=== PATIENT | female | born 1965 | race Caucasian/White ===

== ENCOUNTER → 2016-05-05 | Outpatient (CLI) | payer OTHER ==
[~2016-05-05] MED LIST: ALL180 PO; ATOR-22 PO; CITA10TA8 PO; FEXO1TAB46 PO; LISI20TA55 PO; MULT-513 PO
[2016-05-05 13:54] LABS: ALT/SGPT 24 U/L (12-78); BLOOD UREA NITROGEN 11 mg/dl (7-18); BUN/CREATININE RATIO 13.8 (10-20); CALCIUM 9.1 mg/dl (8.5-10.1); CARBON DIOXIDE 27 mmol/L (21-32); CHLORIDE 107 mmol/L (98-107); CREATININE 0.82 mg/dl (0.60-1.20); GLUCOSE 91 mg/dl (70-99); POTASSIUM 3.8 mmol/L (3.5-5.1); SODIUM 142 mmol/L (136-145)
[2016-05-05 13:57] LABS: CHOLESTEROL 222 mg/dl (0-200); CHOLESTEROL/HDL RATIO 4.4; HDL CHOLESTEROL 51 mg/dl; LDL CHOLESTEROL CALCULATED 152 mg/dl; TRIGLYCERIDES 95 mg/dl (0-150); VERY LOW DENSITY LIPOPROT CALC 19 mg/dl
== END | disposition home or self-care (01) ==
LOC: C.LABPBG 09:40
PROVIDERS: ATTEND Family Medicine
DX: E78.5 Hyperlipidemia, unspecified (principal); I10 Essential (primary) hypertension

== ENCOUNTER 2016-08-05 18:36 | Emergency (ER) | payer BC, OTHER ==
[~2016-08-05] VITALS: Ht 165.1 cm; Wt 90.9 kg
[~2016-08-05 18:36] MED LIST changes: -FEXO1TAB46 PO
[2016-08-05 18:41] VITALS: TEMP 36.7; Ht 165.1 cm; Wt 90.9 kg
[2016-08-05 19:08] LABS: BASO % 0.1 %; BASO ABS # 0.01 K/uL (0-0.2); COMPLETE YES; EOS % 5.5 %; HEMATOCRIT 41.8 % (37-47); IG% 0.1 %; LYMPH % 40.2 %; LYMPH ABS # 2.99 K/uL (1.2-3.4); MEAN CORPUSCULAR HEMOGLOBIN 34.6 pg (25-34); MEAN CORPUSCULAR HGB CONC 35.6 g/dl (32-36); MEAN PLATELET VOLUME 8.9 fL (7.4-10.4); MONO % 6.9 %; NEUT % 47.2 %; PLATELET COUNT 222 K/uL (130-400); RED BLOOD COUNT 4.31 M/uL (4.2-5.4); WHITE BLOOD COUNT 7.44 K/uL (4.8-10.8)
[2016-08-05] MEDS ORDERED: FEXO1TAB46 PO (19:17)
[2016-08-05 19:18] LABS: INR 0.9 (0.9-1.1); PROTHROMBIN TIME (PATIENT) 9.5 SECONDS (9.0-12.0)
[2016-08-05 19:35] LABS: BUN/CREATININE RATIO 11.9 (10-20); CALCIUM 9.4 mg/dl (8.5-10.1); CREATININE 0.96 mg/dl (0.60-1.20); POTASSIUM 3.7 mmol/L (3.5-5.1)
--- NOTE | 2016-08-05 19:56 | DIAGNOSTIC IMAGING REPORT ---
ULTRASOUND LEFT LOWER EXTREMITY VENOUS CLINICAL HISTORY: Left leg pain and swelling. COMPARISON STUDY: No priors. TECHNIQUE: Real-time, grayscale, and color Doppler sonography of the deep veins of the left lower extremity was performed from the inguinal crease to the calf. Compression and augmentation were utilized. FINDINGS: There is no sonographic evidence of deep venous thrombosis identified in the left lower extremity. The common femoral, superficial femoral, and popliteal veins are patent and normally compressible. The greater saphenous vein and the profunda femoris vein at the junction with the common femoral vein are clear. The visualized calf veins are patent. IMPRESSION: There is no sonographic evidence of deep venous thrombosis identified in the left lower extremity. Electronically signed by: Christian French M.D. 08/05/2016 7:55 PM Dictated Date/Time: 08/05/2016 7:54 PM
[2016-08-05 20:32] VITALS: BP 204/110; PULSE 68; O2SAT 98
--- NOTE | 2016-08-07 12:26 | EMERGENCY ROOM VISIT NOTE ---
History Report prepared by Caprice: Allie Mccarthy Under the Supervision of: Dr. Kevin Guillen M.D. First contact with patient: 18:54 Chief Complaint: SWELLING TO EXTREMITY Stated Complaint: LEFT LEG SWOLLEN AND CRAMPY History of Present Illness The patient is a 51 year old female who presents to the Emergency Room with complaints of persistent left leg swelling starting earlier today. She had a mole removed from her foot 1 week ago and there are stitches in place. Her legs have been aching for the past couple of days. She started having swelling today. She called her PCP who told her to present to the ED. In 2013, she had a DVT in the same leg. She was on Lovenox injections and warfarin for 6 months. 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 The symptoms are similar to her previous DVT. She reports calf pain. She denies any chest pain, SOB, numbness, or weakness. She has no other complaints. She denies any trauma or injury. Source of History: patient, family Onset: earlier today Position: leg (left) Quality: other (swelling) Timing: other (persistent) Associated Symptoms: No SOB, No chest pain, No numbness, No weakness Note: Pt reports calf pain. Review of Systems See HPI for pertinent positives & negatives. A total of 10 systems reviewed and were otherwise negative. Past Medical & Surgical Medical Problems: (1) Malignant neoplasm of vagina Old medical records were reviewed. Nurse's notes were reviewed and I agree with. She did have a DVT in the past. Not currently on any anticoagulation Family History Diabetes mellitus FHx: cancer Hypertension Social History Smoking Status: Current Every Day Smoker Marital Status: Housing Status: lives with family Occupation Status: employed Current/Historical Medications Scheduled Atorvastatin (Lipitor), 20 MG PO DAILY Citalopram Hydrobromide (Celexa), 10 MG PO HS Lisinopril/Hctz (Prinzide 20-25MG), 1 TAB PO DAILY Scheduled PRN Fexofenadine Hcl (Jeanine), 180 MG PO DAILY PRN for Allergy Symptoms Allergies Coded Allergies: Penicillins (Verified Allergy, Intermediate, RASH FROM HEAD TO TOE., ) Physical Exam Vital Signs Date Time Temp Pulse Resp B/P Pulse Ox O2 Delivery O2 Flow Rate FiO2 08/05/16 20:32 68 18 204/110 98 Room Air 08/05/16 18:41 36.7 78 18 161/90 98 Room Air Physical Exam General: Non ill-appearing middle aged female in no acute distress. Well developed well nourished, breathing comfortably on room air. Normal speech HEENT: Normal cephalic atraumatic. Pupils are equal round and reactive to light. Extraocular movements are intact. Oropharynx is pink with moist mucous membranes. No swelling of the mouth lips or tongue. Neck: Supple with a midline trachea. No meningeal signs or stiffness, no JVD or bruits. No Stridor. Chest: Clear to auscultation bilaterally. No wheezes or rhonchi. No increased work of breathing. Heart: regular rate and rhythm. Abdomen: Soft nontender, nondistended without rebound guarding or rigidity. Extremities: Well healing post op incision to the left foot, no redness, warmth , or drainage. Mild calf tenderness. Spine/Back. Non tender to palpation. No CVA tenderness Skin: Good turgor without rashes. Neurologic exam: Cranial nerves two through 12 are intact. Motor and sensation are intact and symmetrical throughout. Medical Decision & Procedures ER Provider Diagnostic Interpretation: Radiology results as stated below per my review and radiologist interpretation: ULTRASOUND LEFT LOWER EXTREMITY VENOUS CLINICAL HISTORY: Left leg pain and swelling. COMPARISON STUDY: No priors. TECHNIQUE: Real-time, grayscale, and color Doppler sonography of the deep veins of the left lower extremity was performed from the inguinal crease to the calf. Compression and augmentation were utilized. FINDINGS: There is no sonographic evidence of deep venous thrombosis identified in the left lower extremity. The common femoral, superficial femoral, and popliteal veins are patent and normally compressible. The greater saphenous vein and the profunda femoris vein at the junction with the common femoral vein are clear. The visualized calf veins are patent. IMPRESSION: There is no sonographic evidence of deep venous thrombosis identified in the left lower extremity. Electronically signed by: Christian French M.D. 08/05/2016 7:55 PM Dictated Date/Time: 08/05/2016 7:54 PM Laboratory Results 08/05/16 19:00 Red Blood Count 4.31, Mean Corpuscular Volume 97.0, Mean Corpuscular Hemoglobin 34.6, Mean Corpuscular Hemoglobin Concent 35.6, Mean Platelet Volume 8.9, Neutrophils (%) (Auto) 47.2, Lymphocytes (%) (Auto) 40.2, Monocytes (%) (Auto) 6.9, Eosinophils (%) (Auto) 5.5, Basophils (%) (Auto) 0.1, Neutrophils # (Auto) 3.51, Lymphocytes # (Auto) 2.99, Monocytes # (Auto) 0.51, Eosinophils # (Auto) 0.41, Basophils # (Auto) 0.01 08/05/16 19:00 Test 08/05/16 19:00 White Blood Count 7.44 K/uL (4.8-10.8) Red Blood Count 4.31 M/uL (4.2-5.4) Hemoglobin 14.9 g/dL (12.0-16.0) Hematocrit 41.8 % (37-47) Mean Corpuscular Volume 97.0 fL (80-100) Mean Corpuscular Hemoglobin 34.6 pg (25-34) Mean Corpuscular Hemoglobin Concent 35.6 g/dl (32-36) Platelet Count 222 K/uL (130-400) Mean Platelet Volume 8.9 fL (7.4-10.4) Neutrophils (%) (Auto) 47.2 % Lymphocytes (%) (Auto) 40.2 % Monocytes (%) (Auto) 6.9 % Eosinophils (%) (Auto) 5.5 % Basophils (%) (Auto) 0.1 % Neutrophils # (Auto) 3.51 K/uL (1.4-6.5) Lymphocytes # (Auto) 2.99 K/uL (1.2-3.4) Monocytes # (Auto) 0.51 K/uL (0.11-0.59) Eosinophils # (Auto) 0.41 K/uL (0-0.5) Basophils # (Auto) 0.01 K/uL (0-0.2) RDW Standard Deviation 45.9 fL (36.4-46.3) RDW Coefficient of Variation 12.9 % (11.5-14.5) Immature Granulocyte % (Auto) 0.1 % Immature Granulocyte # (Auto) 0.01 K/uL (0.00-0.02) Prothrombin Time 9.5 SECONDS (9.0-12.0) Prothromb Time International Ratio 0.9 (0.9-1.1) Activated Partial Thromboplast Time 25.4 SECONDS (21.0-31.0) Partial Thromboplastin Ratio 1.0 Anion Gap 5.0 mmol/L (3-11) Est Creatinine Clear Calc Drug Dose 79.0 ml/min Estimated GFR () 80.5 Estimated GFR (Non- 69.4 BUN/Creatinine Ratio 11.9 (10-20) Calcium Level 9.4 mg/dl (8.5-10.1) Laboratory studies as stated above per my review. ED Course 1856: Past medical records reviewed. The patient was evaluated in room B2, and a complete history and physical examination were performed. 2039: Upon reevaluation, the patient is resting comfortably. I discussed the results and treatment plan with her. She verbalized agreement of the treatment plan. The patient was discharged home. Medical Decision Differential diagnosis: DVT, infection, electrolyte or metabolic abnormality, musculoskeletal. Medication reconciliation: I have personally reviewed her medication list on the chart This patient comes in with left leg vague pain. She had surgery on the foot it looks like it's healing well. There is no evidence suggest infection or surgical complication. Blood work was obtained is unremarkable. She has nothing to suggest electrolyte or metabolic abnormalities. I did do an ultrasound and she has no evidence of DVT. The patient was reassured. She is feeling well and will be discharged home. I encouraged to follow up with her regular doctor for recheck and return if: Increasing pain, redness or warmth, fever or chills, any new problems or concerns. She was happy with plan and discharged to home. Impression Primary Impression: Left leg pain Scribe Attestation The scribe's documentation has been prepared under my direction and personally reviewed by me in its entirety. I confirm that the note above accurately reflects all work, treatment, procedures, and medical decision making performed by me. Departure Information Dispostion Home / Self-Care Referrals Kelly Tian MD (PCP) Forms HOME CARE DOCUMENTATION FORM, IMPORTANT VISIT INFORMATION, WORK / SCHOOL INSTRUCTIONS Patient Instructions My [facility] Additional Instructions Rest. Return if: Increasing pain, worsening symptoms, fever chills, any new problems or concerns. Follow-up with your doctor in the next couple days for recheck if not better or symptoms worsen
[2017-03-09] MEDS ORDERED: LSN/2025 PO (13:03)
[2017-03-09] MEDS ORDERED: ATOR-22 PO (13:03)
[2017-03-09] MEDS ORDERED: LORA-741 PO (13:03)
[2017-03-09] MEDS ORDERED: CITA20TA9 PO (13:03)
[2017-03-09] MEDS ORDERED: FEXO1TAB46 PO (13:03)
== END 2016-08-05 21:00 | disposition home or self-care (01) ==
LOC: C.EDB 18:37
DX: M79.605 Pain in left leg (principal); Z83.3 Family history of diabetes mellitus; Z82.49 Family history of ischemic heart disease and other diseases of the circulatory system; F17.200 Nicotine dependence, unspecified, uncomplicated

== ENCOUNTER → 2017-02-09 | Outpatient (CLI) | payer BC, OTHER ==
[~2017-02-09] MED LIST changes: -ALL180 PO; +FEXO1TAB46 PO; -MULT-513 PO
[2017-02-09 14:17] VITALS: BP 166/88; PULSE 64; TEMP 36.5; O2SAT 98
--- NOTE | 2017-02-09 15:37 | Radiation Oncology Follow-Up ---
Radiation Oncology Follow-Up Date of Visit Feb 09, 2017. Reason For Visit Annual follow-up Radiation Completion Date Pelvic IMRT and HDR x 3 03/01/13 Diagnosis (1) Malignant neoplasm of vagina Status: Resolved Onset Date: 11/15/2012 Histology Subtype: squamous cell carcinoma Stage: lll Permanent Comment: Palpable left groin mass Status post excision of lymph node confirming metastatic squamous cell carcinoma high-grade Finding of distal vaginal lesion T2 N1M0 stage III Status post combined radiation and chemotherapy radiation completed 03/01/2013 received 5600 cGy with pelvic IMRT followed by 3 high-dose treatments of 500 cGy each, total radiation dose 7100 cGy Last Edited By: Keli Caban on Oct 30, 2014 16:46 History of Present Illness Ms. Gonzalez is a 50-year-old female who presented with palpable mass in the left groin. This was nontender, but her examination confirmed an ill-defined mass in the left inguinal area. An ultrasound was performed. This confirmed a 3.0 x 2.3 x 2.9 cm minimally lobulated hypoechogenic complex solid appearing mass felt to be consistent with a pathologically enlarged and possibly infected lymph node. In addition, a small oval hypoechoic solid nodule close to the previously mentioned node was noted measuring 1.6 x 1.0 x 0.9 cm also consistent with lymph node. The patient was seen by Dr. Yomi Izaguirre. His examination confirmed a hard fixed to 3 cm mass in the left groin. He discussed an excisional biopsy. On November 15 an excisional biopsy was performed of a left inguinal groin node. Node measured 3.0 x 2.8 x 2.6 cm with a second smaller node measuring 1.2 cm. Histologically these nodes contained metastatic squamous cell carcinoma high grade. The tumor was focally keratinizing. P-16 was strongly positive consistent with a marker for HPV. Case [id number]. The patient was subsequently seen by Dr. Kae Marie and noted on pelvic examination a mobile nodule at the vaginal introitus. This measured 2 x 3 cm and was a firm and slightly deviated to the left. The cervix and uterus were surgically absent. The patient was subsequently seen at [place] for evaluation of further surgical treatment options. Their exam showed a 2 x 3 cm firm midline mass in the posterior vagina with vaginal primary and metastatic lymph node in the left groin. The patient was seen by Dr. Collette Galvan who reviewed with her the treatment options of primary surgical treatment versus chemoradiation. A biopsy of the vaginal mass was performed. This confirmed a squamous cell carcinoma intermediate grade. The patient subsequently underwent an outpatient staging PET CT scan and was seen by Dr. Asa Vazquez for evaluation of systemic therapy. PET/CT scan was performed on December 07, 2012. This showed focal activity within the lower vagina with a maximum SUV of 12.95 consistent with a primary carcinoma. The upper vagina and pelvic structures are uninvolved. An ill-defined opacity is noted in the left groin possibly postsurgical. She completed combined radiation chemotherapy number 2012. Radiation was given with IMRT. She also received 3 high-dose treatments of 500 cGy each. Her total dose of radiation was 7100 cGy. Interim History She's been doing well over this past year. She denies any vaginal discharge or irritation. She's had noted change in urination. She did have an episode of rectal bleeding this morning. She stated she felt like she needed to have a bowel movement. She passed mucus and what appeared to be blood. She denied any abdominal pain or cramping prior to the bowel movement. She is concerned because she has a family history of colon cancer. Her grandmother had colon cancer in her 60s. She had surgery on a small amount of chemotherapy. She did not tolerated this well. She did live into her 70s. She was seen in gynecologic oncology this past year. There was no signs of recurrence. There was also a recheck PET/CT. There was some uptake at the vaginal cuff. This was felt to possibly be spillover activity from the urinary bladder. Direct visualization was recommended. This was performed 11/05/2016 and there was no recurrent seen. She no longer needs to use the vaginal dilator. Allergies Coded Allergies: Penicillins (Verified Allergy, Intermediate, RASH FROM HEAD TO TOE., ) Home Medications Scheduled Atorvastatin (Lipitor), 20 MG PO DAILY Citalopram Hydrobromide (Celexa), 10 MG PO HS Lisinopril/Hctz (Prinzide 20-25MG), 1 TAB PO DAILY Scheduled PRN Fexofenadine Hcl (Jeanine), 180 MG PO DAILY PRN for Allergy Symptoms Review of Systems Gastrointestinal: GI Comments: One episode this AM of urge for BM and only passed red mucus; Oral: Symptoms: No Problems Respiratory: Symptoms: WNL Urinary: Symptoms: WNL Skin: Symptoms: No Problems Physical Exam Vital Signs Date Time Temp Pulse Resp B/P (MAP) Pulse Ox O2 Delivery O2 Flow Rate FiO2 02/09/17 14:17 36.5 64 20 166/88 98 Fatigue: None General Appearance: no apparent distress Eyes: normal inspection, EOMI ENT: normal ENT inspection, hearing grossly normal Respiratory/Chest: lungs clear, no respiratory distress, no accessory muscle use Cardiovascular: regular rate, rhythm, no gallop, no murmur Abdomen: non tender, soft, no organomegaly Genitourinary - Female: Normal external genitalia. No vaginal discharge or bleeding. No visible or palpable lesions of the vagina. Negative bimanual examination. Anal / Rectum: Normal sphincter tone. No rectal masses no rectal bleeding. Extremities: no pedal edema Neurologic/Psychiatric: no motor/sensory deficits, alert, normal mood/affect Lymphatic: no adenopathy (no adenopathy of the groin) Assessment & Plan Plan: Continue regular follow-up with gynecologic oncology. She'll be seen there in May. Due to the episode of rectal bleeding she is referred to gastroenterology. She'll be seen by Lois Dumont physician assistant plant control operator who works with Dr. Jack on 02/17/2017. We asked her to return to our office in 1 year. She may call if she has any questions or concerns in the interim. Total Time In Follow-Up I spent 20 minutes speaking to the patient and performing examination. I spent 15 minutes reviewing information in completing this note. Copy To Lois Dumont PA; Sophia Galvan D.O.; Asa Vazquez M.D.; Kelly Tian MD
== END | disposition home or self-care (01) ==
LOC: C.ONC 14:03
PROVIDERS: ATTEND Physician Assistant Medical
DX: Z08 Encounter for follow-up examination after completed treatment for malignant neoplasm (principal); Z92.3 Personal history of irradiation; Z85.89 Personal history of malignant neoplasm of other organs and systems

== ENCOUNTER → 2017-03-16 | Day surgery (SDC) | payer BC ==
[2017-03-09 13:03] VITALS: Ht 165.1 cm; Wt 94.5 kg
[~2017-03-16] VITALS: Ht 165.1 cm; Wt 94.5 kg
[~2017-03-16] MED LIST changes: -CITA10TA8 PO; +CITA20TA9 PO; +LIDOCAINE HCL 2% 2 ML VIAL (20MG/ML) ONE; -LISI20TA55 PO; +LORA-741 PO; +LSN/2025 PO; +PROPOFOL IV EMULSION 10 MG/ML 20 ML VIAL IV ONE
--- NOTE | 2017-03-16 10:00 | Endo History and Physical ---
History & Physical Date of Service: Mar 16, 2017. Chief Complaint: Rectal bleeding Referring Physician: Dr. Kelly Tian History of Present Illness 51 yo CF who presents for colonoscopy secondary to rectal bleeding. Past Surgical History Hx Cardiac Surgery: No Hx Internal Defibrillator: No Hx Pacemaker: No Hx Abdominal Surgery: Yes (HYSTERECTOMY, CHRISTA) Hx of Implantable Prosthesis: No Hx Post-Op Nausea and Vomiting: No Hx Cancer Surgery: No Hx Thoracic Surgery: No Hx Orthopedic: No Hx Urinary Tract Surgery: No Family History Colon CA, Esophogeal CA Social History Smoking Status: Current Every Day Smoker Hx Substance Use: No Hx Alcohol Use: Yes (RARELY) Allergies Coded Allergies: Penicillins (Verified Allergy, Intermediate, RASH FROM HEAD TO TOE., ) Current Medications Reported Home Medications Medications Dose Route/Sig Max Daily Dose Days Date Category Ativan (Lorazepam) 0.5 Mg Tab 0.5 Mg PO Q6H PRN 03/09/17 Reported Jeanine (Fexofenadine Hcl) 180 Mg Tab 180 Mg PO DAILY PRN 03/09/17 Reported Celexa (Citalopram Hydrobromide) 20 Mg Tab 20 Mg PO HS 03/09/17 Reported Lipitor (Atorvastatin Calcium) 20 Mg Tab 20 Mg PO HS 03/09/17 Reported Lisinopril/Hctz 20/25 Mg (HCTZ/Lisinopril) 1 Ea Tab 1 Tab PO QAM 03/09/17 Reported Vital Signs Weight (Kilograms): 94.55 Height (Feet): 5 Height (Inches): 5 Date Time Temp Pulse Resp B/P (MAP) Pulse Ox O2 Delivery O2 Flow Rate FiO2 03/16/17 09:29 36.8 79 18 134/91 (105) 95 Room Air Physical Exam General Appearance: WD/WN, no apparent distress Respiratory/Chest: Auscultation: breath sounds normal Cardiovascular: Heart Auscultation: RRR Abdomen: Bowel Sounds: normal Inspection & Palpation: soft, non-distended, no tenderness, guarding & rebound Assessment and Plan Assessment: 51 yo CF who presents for colonoscopy secondary to rectal bleeding. Plan: Proceed with colonoscopy.
--- NOTE | 2017-03-16 10:20 | Discharge Instructions ---
Endoscopy Patient Instructions Date / Procedure(s) Performed Mar 16, 2017. Colonoscopy Allergy Information Coded Allergies: Penicillins (Verified Allergy, Intermediate, RASH FROM HEAD TO TOE., ) Discharge Date / Findings Mar 16, 2017. 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 OK to resume all medications today as prescribed Reported Home Medications Medications Dose Route/Sig Max Daily Dose Days Date Category Ativan (Lorazepam) 0.5 Mg Tab 0.5 Mg PO Q6H PRN 03/09/17 Reported Jeanine (Fexofenadine Hcl) 180 Mg Tab 180 Mg PO DAILY PRN 03/09/17 Reported Celexa (Citalopram Hydrobromide) 20 Mg Tab 20 Mg PO HS 03/09/17 Reported Lipitor (Atorvastatin Calcium) 20 Mg Tab 20 Mg PO HS 03/09/17 Reported Lisinopril/Hctz 20/25 Mg (HCTZ/Lisinopril) 1 Ea Tab 1 Tab PO QAM 03/09/17 Reported Provider Instructions Activity Restrictions - No exercising or heavy lifting for 24 hours. - Do not drink alcohol the day of the procedure. - Do not drive a car or operate machinery until the day after the procedure. - Do not make any important decisions or sign important papers in 24 hours after the procedure. Following Day: - Return to full activity which may include returning to work/school. Diet Start your diet with liquids and light foods (jello, soup, juice, toast). Then eat your usual diet if not nauseated. Treatment For Common After Affects For mild abdominal pain, bloating, or excessive gas: - Rest - Eat lightly - Lie on right side Follow-Up Information Follow-up with Dr. Kelly Tian as scheduled Anesthesia Information What You Should Know You have had a procedure that required some medicine to reduce anxiety and discomfort. This treatment is called moderate sedation. After receiving the treatment, you may be sleepy, but you will be able to breathe on your own. The effects of the treatment may last for several hours. Follow these instructions along with Activity/Diet recommendations noted above: * Do NOT do anything where dizziness or clumsiness would be dangerous. * Rest quietly at home today, then you can be up and about tomorrow. * Have a responsible person stay with you the rest of today. * You may have had an I.V. today. If so, you may take the dressing off later today. Recommendations Call your doctor if: * Trouble breathing * Continuous vomiting for more than 24 hours * Temperature above 101 degrees * Severe abdominal pain or bloating * Pain not relieved by pain medicine ordered * There is increased drainage or redness from any incision * A large amount of rectal bleeding greater than 2-3 tablespoons. (If you had a polyp/s removed or have hemorrhoids, a small amount of blood - from the rectum is to be expected.) * You have any unanswered questions or concerns. IN THE EVENT OF A SERIOUS EMERGENCY, GO TO THE NEAREST EMERGENCY ROOM Your discharge instructions were prepared by provider Ivan Jack. Patient Instructions Signature Page Anahy Gonzalez Patient (or Guardian) Signature/Date: I have read and understand the instructions given to me by my caregivers. Caregiver/RN/Doctor Signature/Date: The above-named patient and/or guardian has received patient instructions on this date. + Original Patient Signature Page (only) stays with chart. Please make copy for patient.
--- NOTE | 2017-03-16 11:27 | GI REPORT ---
Procedure Date: 03/16/2017 10:57 AM Procedure: Colonoscopy Indications: Rectal bleeding Medicines: Monitored Anesthesia Care Complications: No immediate complications. Estimated Blood Loss: Estimated blood loss: none. Procedure: Pre-Anesthesia Assessment: - Prior to the procedure, a History and Physical was performed, and patient medications and allergies were reviewed. The patient's tolerance of previous anesthesia was also reviewed. The risks and benefits of the procedure and the sedation options and risks were discussed with the patient. All questions were answered, and informed consent was obtained. Prior Anticoagulants: The patient has taken no previous anticoagulant or antiplatelet agents. ASA Grade Assessment: II - A patient with mild systemic disease. After reviewing the risks and benefits, the patient was deemed in satisfactory condition to undergo the procedure. After I obtained informed consent, the scope was passed under direct vision. Throughout the procedure, the patient's blood pressure, pulse, and oxygen saturations were monitored continuously. The scope was introduced through the anus and advanced to the terminal ileum. The colonoscopy was performed without difficulty. The patient tolerated the procedure well. The quality of the bowel preparation was good. The terminal ileum, the ileocecal valve and the appendiceal orifice were photographed. Findings: The perianal and digital rectal examinations were normal. Multiple small-mouthed diverticula were found in the sigmoid colon. Localized mild inflammation characterized by friability was found in the rectum. Impression: - Diverticulosis in the sigmoid colon. 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 - No specimens collected. Recommendation: - Resume previous diet. - Continue present medications. - Repeat colonoscopy in 10 years for surveillance. - Return to primary care physician as previously scheduled. Ivan Jack, 03/16/2017 11:27:09 AM This report has been signed electronically. Note Initiated On: 03/16/2017 10:57 AM I attest to the content of the Intraoperative Record and orders documented therein, exceptions below
--- NOTE | 2017-03-16 11:33 | Anesthesiology Progress Note ---
Anesthesia Post Op Note Date & Time Mar 16, 2017 at 11:33 Vital Signs Pain Intensity: 0 Vital Signs Past 12 Hours Date Time Temp Pulse Resp B/P (MAP) Pulse Ox O2 Delivery O2 Flow Rate FiO2 03/16/17 11:22 70 16 167/93 (117) 93 Room Air 03/16/17 09:29 36.8 79 18 134/91 (105) 95 Room Air Notes Mental Status: alert / awake / arousable, participated in evaluation Pt Amnestic to Procedure: Yes Nausea / Vomiting: adequately controlled Pain: adequately controlled Airway Patency, RR, SpO2: stable & adequate BP & HR: stable & adequate Hydration State: stable & adequate Anesthetic Complications: no major complications apparent
[2017-03-16 11:50] VITALS: BP 167/95; PULSE 65; O2SAT 97
== END | disposition home or self-care (01) ==
LOC: C.GI 09:07
PROVIDERS: ATTEND Internal Medicine
DX: K62.5 Hemorrhage of anus and rectum (principal); K57.30 Diverticulosis of large intestine without perforation or abscess without bleeding; K62.89 Other specified diseases of anus and rectum; Z86.718 Personal history of other venous thrombosis and embolism; Z88.0 Allergy status to penicillin; Z90.710 Acquired absence of both cervix and uterus; F17.200 Nicotine dependence, unspecified, uncomplicated; Z79.899 Other long term (current) drug therapy; Z90.49 Acquired absence of other specified parts of digestive tract; Z90.89 Acquired absence of other organs; Z98.818 Other dental procedure status; E66.9 Obesity, unspecified; Z68.38 Body mass index [BMI] 38.0-38.9, adult; Z80.0 Family history of malignant neoplasm of digestive organs

== ENCOUNTER 2019-12-21 19:42 | Observation (INO) ==
[2019-12-21] MEDS ORDERED: SODIUM CHLORIDE 0.9% 1000ML 1,000 ML IV ONE (20:00)
[2019-12-21] MEDS ORDERED: ONDANSETRON INJ 2 MG/ML 2 ML VIAL IV STA (20:00)
[2019-12-21] MEDS ORDERED: MoRPHine SULFATE 4 MG/ML 1 ML CARP\\VIAL IV STA (20:00)
--- NOTE | 2019-12-21 20:08 | Emergency Department Note ---
History of Present Illness General Chief Complaint: Diarrhea Stated Complaint: DIARRHEA, VOMITING Time Seen by Provider: 12/21/19 19:53 History of Present Illness Provider Complaint: abdominal pain Onset (ago): 2 day(s) Pain Consistency: constant Location: LLQ Radiation: none Migration to: no migration Maximum Pain Intensity: 4 Current Pain Intensity: 4 Quality: + sharp Relieved By: + nothing Exacerbated By: + nothing Context: no possible food poisoning, no sick contacts, no recent antibiotic use, no recent surgery/procedure and no recent injury Associated Symptoms: + nausea, + vomiting, + diarrhea and + chest pain; no dysuria, no hematemesis, no hematochezia, no melena, no hematuria, no headache, no neck pain, no back pain, no weakness and no breathing difficulty Related Data Patient Confirmed : No Home Medications Home Medications Medication Instructions Recorded Confirmed Type multivitamin 1 tab PO [id number] 02/15/18 12/21/19 History citalopram 20 mg tablet 20 mg PO DAILY #30 tab 11/24/19 12/21/19 Rx fexofenadine 180 mg tablet 180 mg PO DAILY #30 tab 11/24/19 12/21/19 Rx lisinopril 20 1 tab PO DAILY #30 tab 11/24/19 12/21/19 Rx mg-hydrochlorothiazide 25 mg tablet lorazepam 0.5 mg tablet 0.5 mg PO TID PRN #30 tab 11/24/19 12/21/19 Rx atorvastatin 40 mg tablet 40 mg PO DAILY #30 tab 11/30/19 12/21/19 Rx diphenoxylate-atropine 2.5 1 tab PO QID PRN #30 tab MDD 8 12/19/19 12/21/19 Rx mg-0.025 mg tablet TABS/24H ondansetron 4 mg disintegrating 4 mg PO Q6H PRN #10 tab 12/19/19 12/21/19 Rx tablet Allergies Allergy/AdvReac Type Severity Reaction Status Date / Time Penicillins Allergy Intermediate RASH FROM Verified 12/19/19 16:33 HEAD TO TOE. 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 Finding of distal vaginal lesion T2 N1M0 stage III Status post combined radiation and chemotherapy radiation completed 03/01/2013 received 5600 cGy with pelvic IMRT followed by 3 high-dose treatments of 500 cGy each, total radiation dose 7100 cGy" No pertinent family history Seasonal allergies Surgical History H/O: hysterectomy S/P laparoscopic cholecystectomy Social History Smoking Status: Current every day smoker Cigarettes Per Day: 20; Tobacco Cessation Education Requested by Patient: No Hx Alcohol Use: No Preferred Language: Moroccan Communication Ability: Effective Survey Research Analyst Required: No Beliefs That Will Affect Care: None Current Living Situation: Spouse Feels Safe at Home: Yes Review of Systems A total of 10 systems reviewed and were otherwise negative Physical Exam Vital Signs: Vital Signs - 24 hr 12/21/19 19:44 12/21/19 20:01 12/21/19 20:21 Temperature 36.6 C Temperature Source Oral Pulse Rate 66 58 L Pulse Rate [Apical ] Pulse Rate from Sp O2 Sensor 59 L Respiratory Rate 18 22 Respiratory Effort / Characteristics Non-Labored Sponta neous Respiratory Depth Normal Respiratory Patter n Regular Blood Pressure 148/85 H 132/74 Blood Pressure [Ri ght Arm] Blood Pressure Devorah n 106 79 Blood Pressure Devorah n [Right Arm] Blood Pressure Pos ition Sitting Pulse Oximetry 97 95 Oxygen Delivery Me thod Room Air Room Air Room Air Sepsis Recent Feve r Within 48 Hours No Sepsis New/Unexpla ined Change in Men bubba Status No Sepsis Action Take n by Nursing No Action Required 12/21/19 20:30 12/21/19 21:11 12/21/19 21:13 Temperature Temperature Source Pulse Rate 59 L 58 L 57 L Pulse Rate [Apical ] Pulse Rate from Sp O2 Sensor 59 L 58 L 58 L Respiratory Rate 25 H 16 19 Respiratory Effort / Characteristics Respiratory Depth Respiratory Patter n Blood Pressure 146/80 H 148/80 H Blood Pressure [Ri ght Arm] Blood Pressure Devorah n 92 95 Blood Pressure Devorah n [Right Arm] Blood Pressure Pos ition Pulse Oximetry 96 97 97 Oxygen Delivery Me thod Room Air Room Air Sepsis Recent Feve r Within 48 Hours Sepsis New/Unexpla ined Change in Men bubba Status Sepsis Action Take n by Nursing 12/21/19 21:30 12/21/19 22:01 12/21/19 22:30 Temperature Temperature Source Pulse Rate 58 L 55 L 57 L Pulse Rate [Apical ] Pulse Rate from Sp O2 Sensor 57 L 55 L 55 L Respiratory Rate 27 H 17 15 Respiratory Effort / Characteristics Respiratory Depth Respiratory Patter n Blood Pressure 139/78 128/72 136/84 Blood Pressure [Ri ght Arm] Blood Pressure Devorah n 104 82 102 Blood Pressure Devorah n [Right Arm] Blood Pressure Pos ition Pulse Oximetry 96 96 97 Oxygen Delivery Me thod Room Air Room Air Room Air Sepsis Recent Feve r Within 48 Hours Sepsis New/Unexpla ined Change in Men bubba Status Sepsis Action Take n by Nursing 12/21/19 22:56 Temperature Temperature Source Pulse Rate Pulse Rate [Apical ] 58 L Pulse Rate from Sp O2 Sensor Respiratory Rate 18 Respiratory Effort / Characteristics Respiratory Depth Respiratory Patter n Blood Pressure Blood Pressure [Ri ght Arm] 127/71 Blood Pressure Devorah n Blood Pressure Devorah n [Right Arm] 89 Blood Pressure Pos ition Pulse Oximetry 98 Oxygen Delivery Me thod Room Air Sepsis Recent Feve r Within 48 Hours Sepsis New/Unexpla ined Change in Men bubba Status Sepsis Action Take n by Nursing Physical Exam: Physical Exam GENERAL: She is oriented to person, place, and time. She appears well-developed and well-nourished. She does not appear distressed. HENT: Exam performed. -Head: Normocephalic and atraumatic. -Right Ear: External ear normal. No mastoid tenderness. -Left Ear: External ear normal. No mastoid tenderness. -Mouth/Throat: The oropharynx is clear and moist. No trismus in the jaw. No dental abscesses or uvula swelling. No oropharyngeal exudate or tonsillar abscesses. EYES: Conjunctivae and EOM are normal. Pupils are equal, round, and reactive to light. Right eye exhibits no discharge. Left eye exhibits no discharge. No scleral icterus. NECK: Normal range of motion. Neck supple. No JVD present. No spinous process tenderness present. No carotid bruit present. No rigidity. No tracheal deviation and normal range of motion present. No Brudzinski's sign and no Kernig's sign no artur. CV: Normal rate, regular rhythm, normal heart sounds and intact distal pulses. There is no peripheral edema. Palpable radial pulses bue. PULM/CHEST: Effort normal and breath sounds normal. No respiratory distress. No stridor. She has no wheezes. She has no rales. -Chest Wall: She exhibits no tenderness. ABD: The abdomen is soft. Bowel sounds are normal. She has no distension. No mass is present. There is tenderness to palpation of the left lower quadrant and epigastric area. There is no rebound, no guarding, no Lopez's sign and no tenderness at McBurney's point. Rovsig negative MUSC/SKEL: Normal range of motion. There is no peripheral edema, tenderness or deformity. LYMPH: No cervical adenopathy. NEURO: She is alert and oriented to person, place, and time. She has normal strength. No cranial nerve deficit or sensory deficit. Coordination and gait normal. GCS eye subscore is 4. GCS verbal subscore is 5. GCS motor subscore is 6. Cerebellar tests wnl. SKIN: Skin is warm and dry. She is not diaphoretic. PSYCH: She has a normal mood and affect. Behavior is normal. Judgment and thought content normal. Course Course 1952: The patient was evaluated in room B11. A complete history and physical exam was performed. Cardiac monitoring: An order was placed for continuous cardiac monitoring. The monitor shows a rate of 60 with sinus rhythm 2215: Vital signs stable. Labs show leukopenia of 3.44. Potassium 2.8. Nasion within normal limits. Patient's bilirubin level direct is elevated 0.4. AST and ALT are elevated 273 and 397 respectively. Alkaline phosphatase elevated at 138. [facility]. Patient is in agreement with this plan. Potassium will begin to be replaced in the emergency department. Administered Medications Discontinued Medications Sodium Chloride (Nss 1000ml) 1,000 mls @ 999 mls/hr IV .Q1H1M ONE Stop: 12/21/19 21:00 Last Infusion: 12/21/19 21:15 Dose: 0 mls/hr Documented by: [id number] Admin: 12/21/19 20:15 Dose: 999 mls/hr Documented by: [id number] Potassium Chloride (K Bryan / Wtr) 10 meq in 100 mls @ 100 mls/hr IV Q1H AMIRA Stop: 12/22/19 00:14 Last Admin: 12/21/19 23:41 Dose: 100 mls/hr Documented by: [id number] Infusion: 12/21/19 23:38 Dose: 0 mls/hr Documented by: [id number] Admin: 12/21/19 22:37 Dose: 100 mls/hr Documented by: [id number] Ioversol (Ioversol 100ml) 94 ml IV ONCE ONE Stop: 12/21/19 20:46 Last Admin: 12/21/19 20:45 Dose: 94 ml Documented by: [id number] Morphine Sulfate (Morphine Sulfate 4 Mg/Ml 1 Ml Carp\\Vial) 4 mg IV NOW STA Stop: 12/21/19 20:01 Last Admin: 12/21/19 20:15 Dose: 4 mg Documented by: [id number] Ondansetron HCl (Ondansetron Inj 2 Mg/Ml 2 Ml Vial) 4 mg IV NOW STA Stop: 12/21/19 20:01 Last Admin: 12/21/19 20:15 Dose: 4 mg Documented by: [id number] Potassium Chloride (Potassium Chloride 10 Meq Tabcr) 40 meq PO NOW STA Stop: 12/21/19 22:03 Last Admin: 12/21/19 22:37 Dose: 40 meq Documented by: [id number] Medical Decision Making Laboratory Data Result diagrams: 12/21/19 20:11 12/21/19 20:11 Lab Results 12/21/19 12/21/19 12/21/19 Range/Units 20:11 20:11 20:11 WBC 3.44 L (4.8-10.8) K/uL RBC 4.50 (4.2-5.4) M/uL Hgb 14.3 (12.0-16.0) g/dL Hct 40.2 (37-47) % MCV 89.3 (80-100) fL MCH 31.8 (25-34) pg MCHC 35.6 (32-36) g/dL RDW Std Deviation 42.1 (36.4-46.3) fL RDW Coeff of Kendra 12.9 (11.5-14.5) % Plt Count 137 (130-400) K/uL MPV 10.0 (7.4-10.4) fL Immature Gran % (Auto) 0.0 % Neut % (Auto) 39.8 % Lymph % (Auto) 41.3 % [place] % (Auto) 15.4 % Eos % (Auto) 3.2 % Baso % (Auto) 0.3 % Neut # (Auto) 1.37 L (1.4-6.5) K/uL Lymph # (Auto) 1.42 (1.2-3.4) K/uL [place] # (Auto) 0.53 (0.11-0.59) K/uL Eos # (Auto) 0.11 (0-0.5) K/uL Baso # (Auto) 0.01 (0-0.2) K/uL Immature Gran # (Auto) 0.00 (0.00-0.02) K/uL Sodium 139 (136-145) mmol/L Potassium 2.8 L (3.5-5.1) mmol/L Chloride 107 (98-107) mmol/L Carbon Dioxide 27 (21-32) mmol/L Anion Gap 5.0 (3-11) BUN 9 (7-18) mg/dl Creatinine 0.80 (0.6-1.2) mg/dl Est Cr Clr Drug Dosing Not Reportable Est GFR ( Amer) 98.2 Est GFR (Non-Af Amer) 84.8 BUN/Creatinine Ratio 10.9 (10-20) Glucose 101 H (70-99) mg/dl Calcium 9.2 (8.5-10.1) mg/dl Magnesium 2.1 (1.8-2.4) mg/dl Total Bilirubin 0.9 (0.2-1) mg/dl Direct Bilirubin 0.4 H (0-0.2) mg/dl AST 273 H (15-37) U/L ALT 397 H (12-78) U/L Alkaline Phosphatase 138 H (45-117) U/L Troponin I < 0.015 (0-0.045) ng/ml Total Protein 6.7 (6.4-8.2) gm/dl Albumin 3.3 L (3.4-5.0) gm/dl Lipase 287 (73-393) U/L Urine Color Urine Appearance (Clear) Urine pH (4.5-7.5) Ur Specific [place] (1.000-1.030) Urine Protein (Negative) Urine Glucose (UA) (Negative) Urine Ketones (Negative) Urine Blood (Negative) Urine Nitrite (Negative) Urine Bilirubin (Negative) Urine Urobilinogen (Negative) Ur Leukocyte Esterase (Negative) Urine RBC (0-4) /hpf Urine WBC (0-5) /hpf Ur Epithelial Cells (0-5) /lpf Urine Bacteria (Negative) 12/21/19 Range/Units 21:10 WBC (4.8-10.8) K/uL RBC (4.2-5.4) M/uL Hgb (12.0-16.0) g/dL Hct (37-47) % MCV (80-100) fL MCH (25-34) pg MCHC (32-36) g/dL RDW Std Deviation (36.4-46.3) fL RDW Coeff of Kendra (11.5-14.5) % Plt Count (130-400) K/uL MPV (7.4-10.4) fL Immature Gran % (Auto) % Neut % (Auto) % Lymph % (Auto) % [place] % (Auto) % Eos % (Auto) % Baso % (Auto) % Neut # (Auto) (1.4-6.5) K/uL Lymph # (Auto) (1.2-3.4) K/uL [place] # (Auto) (0.11-0.59) K/uL Eos # (Auto) (0-0.5) K/uL Baso # (Auto) (0-0.2) K/uL Immature Gran # (Auto) (0.00-0.02) K/uL Sodium (136-145) mmol/L Potassium (3.5-5.1) mmol/L Chloride (98-107) mmol/L Carbon Dioxide (21-32) mmol/L Anion Gap (3-11) BUN (7-18) mg/dl Creatinine (0.6-1.2) mg/dl Est Cr Clr Drug Dosing Est GFR ( Amer) Est GFR (Non-Af Amer) BUN/Creatinine Ratio (10-20) Glucose (70-99) mg/dl Calcium (8.5-10.1) mg/dl Magnesium (1.8-2.4) mg/dl Total Bilirubin (0.2-1) mg/dl Direct Bilirubin (0-0.2) mg/dl AST (15-37) U/L ALT (12-78) U/L Alkaline Phosphatase (45-117) U/L Troponin I (0-0.045) ng/ml Total Protein (6.4-8.2) gm/dl Albumin (3.4-5.0) gm/dl Lipase (73-393) U/L Urine Color Yellow Urine Appearance Clear (Clear) Urine pH 6.0 (4.5-7.5) Ur Specific [place] <= 1.005 (1.000-1.030) Urine Protein Negative (Negative) Urine Glucose (UA) Negative (Negative) Urine Ketones Negative (Negative) Urine Blood 1+ H (Negative) Urine Nitrite Negative (Negative) Urine Bilirubin Negative (Negative) Urine Urobilinogen Positive H (Negative) Ur Leukocyte Esterase Negative (Negative) Urine RBC 5-10 H (0-4) /hpf Urine WBC 0-5 (0-5) /hpf Ur Epithelial Cells >30 H (0-5) /lpf Urine Bacteria Negative (Negative) Imaging Data Radiologist's Impression: XR chest 1V portable CLINICAL HISTORY: epigastric pain COMPARISON STUDY: Chest radiograph January 14, 2007. FINDINGS: Lung volumes are normal. Lungs are clear. There is no pneumothorax or pleural effusion. Cardiac size is normal. Mediastinal contours are normal. There is no evidence for pulmonary edema. IMPRESSION: No acute cardiopulmonary findings. ACT 112: Negative or not required by law. Electronically signed by: Сергей Daniels M.D. 12/21/2019 9:08 PM Dictated: 12/21/192106 Transcribed: 12/21/192106 CT OF THE ABDOMEN AND PELVIS WITH CONTRAST CLINICAL HISTORY: Left lower quadrant and epigastric pain. COMPARISON STUDY: PET/CT July 01, 2016. TECHNIQUE: Following IV administration of 94 mL of Optiray-320, axial images of the abdomen and pelvis were obtained from the lung bases to the proximal femurs. Images were reviewed in the axial, sagittal, and coronal planes. IV contrast was administered without complication. Automated exposure control was utilized for the study. A dose lowering technique was utilized adhering to the principles of ALARA. CT DOSE: 675.92 mGy.cm FINDINGS: A few small subpleural nodules within the lower lungs are unchanged since PET/CT of July 01, 2016. These are benign. There is a right hepatic lobe cyst. Mild prominence of the biliary tree is likely related to cholecystectomy. The spleen, adrenal glands and pancreas are unremarkable. There is no peripancre atic infiltration. A 1.3 cm lesion within the upper pole of the right kidney is too small to characterize on this exam but favors a cyst. No hydronephrosis. No urinary calculi are identified. The caliber and wall thickness of small and large bowel are normal. There is no ascites or lymphadenopathy. The appendix is normal. There are no suspicious osseous lesions. IMPRESSION: 1. No acute process within the abdomen or pelvis. 2. Normal appendix. No bowel obstruction. No bowel wall thickening. 3. Mild prominence of the biliary tree. This is likely related to previous cholecystectomy however could be correlated with liver function tests. ACT 112: Negative or not required by law. Electronically signed by: Сергей Daniels M.D. 12/21/2019 9:07 PM Dictated: 12/21/192053 Transcribed: 12/21/192058 ECG Data Indication: nausea Rate (beats per minute): 62 Rhythm: normal sinus Findings: no ST depression and no ST elevation Additional Comments: IN QRS and QTc intervals are within normal limits. [facility] Narrative 1953: The patient was evaluated in room B11. A complete history and physical exam was performed. Cardiac monitoring: An order was placed for continuous cardiac monitoring. The monitor shows a rate of 60 with sinus rhythm 2215: Vital signs stable. Labs show leukopenia of 3.44. Potassium 2.8. Nasion within normal limits. Patient's bilirubin level direct is elevated 0.4. AST and ALT are elevated 273 and 397 respectively. Alkaline phosphatase elevated at 138. [facility]. Patient is in agreement with this plan. Potassium will begin to be replaced in the emergency department. Impression & Plan Acute hypokalemia, Transaminitis Discharge Plan Visit Data Chief Complaint: Diarrhea Stated Complaint: DIARRHEA, VOMITING ED Provider: Mansoor Cid Discharge Problem: Acute hypokalemia, Transaminitis Patient Disposition: Admitted As Inpatient Discharge Instructions Interventions: ED Discharge Assessment Last Done: 12/22/19 00:15
[2019-12-21 20:18] LABS: Basophils # (auto) 0.01 K/uL (0-0.2); Basophils % (auto) 0.3 %; Eosinophils # (auto) 0.11 K/uL (0-0.5); Eosinophils % (auto) 3.2 %; Hematocrit (blood only) 40.2 % (37-47); Hemoglobin 14.3 g/dL (12.0-16.0); Lymphocytes # (auto) 1.42 K/uL (1.2-3.4); Lymphocytes % (auto) 41.3 %; Mean Corpuscular Hemoglobin 31.8 pg (25-34); Mean Corpuscular Hgb Conc 35.6 g/dL (32-36); Mean Corpuscular Volume 89.3 fL (80-100); Monocytes # (auto) 0.53 K/uL (0.11-0.59); Monocytes % (auto) 15.4 %; Neutrophils # (auto) 1.37 K/uL (1.4-6.5); Neutrophils % (auto) 39.8 %; Platelet Count 137 K/uL (130-400); RDW Coefficient of Variation 12.9 % (11.5-14.5); RDW Standard Deviation 42.1 fL (36.4-46.3); White Blood Count 3.44 K/uL (4.8-10.8)
[2019-12-21 20:34] LABS: Alanine Aminotransferase 397 U/L (12-78); Albumin Level 3.3 gm/dl (3.4-5.0); Aspartate Aminotransferase 273 U/L (15-37); BUN Creatinine Ratio 10.9 (10-20); Bilirubin Direct 0.4 mg/dl (0-0.2); Blood Urea Nitrogen 9 mg/dl (7-18); Calcium 9.2 mg/dl (8.5-10.1); Carbon Dioxide 27 mmol/L (21-32); Chloride 107 mmol/L (98-107); Est GFR (African American) 98.2; Est GFR (Non-African American) 84.8; Glucose 101 mg/dl (70-99); Lipase 287 U/L (73-393); Potassium 2.8 mmol/L (3.5-5.1); Sodium 139 mmol/L (136-145)
[2019-12-21 20:39] LABS: Alkaline Phosphatase 138 U/L (45-117); Bilirubin,Total 0.9 mg/dl (0.2-1); Total Protein 6.7 gm/dl (6.4-8.2); Troponin I < 0.015 ng/ml (0-0.045)
[2019-12-21] MEDS ORDERED: IOVERSOL 100ml IV ONE (20:45)
--- NOTE | 2019-12-21 21:08 | CT Scan Report ---
CT OF THE ABDOMEN AND PELVIS WITH CONTRAST CLINICAL HISTORY: Left lower quadrant and epigastric pain. COMPARISON STUDY: PET/CT July 01, 2016. TECHNIQUE: Following IV administration of 94 mL of Optiray-320, axial images of the abdomen and pelvi s were obtained from the lung bases to the proximal femurs. Images were reviewed in the axial, sagitt al, and coronal planes. IV contrast was administered without complication. Automated exposure contro l was utilized for the study. A dose lowering technique was utilized adhering to the principles of A LASHA. CT DOSE: 675.92 mGy.cm FINDINGS: A few small subpleural nodules within the lower lungs are unchanged since PET/CT of June 042016. These are benign. There is a right hepatic lobe cyst. Mild prominence of the biliary tree is likely related to cholecystectomy. The spleen, adrenal glands and pancreas are unremarkable. There i s no peripancreatic infiltration. A 1.3 cm lesion within the upper pole of the right kidney is too sm all to characterize on this exam but favors a cyst. No hydronephrosis. No urinary calculi are identif ied. The caliber and wall thickness of small and large bowel are normal. There is no ascites or lymph adenopathy. The appendix is normal. There are no suspicious osseous lesions. IMPRESSION: 1. No acute process within the abdomen or pelvis. 2. Normal appendix. No bowel obstruction. No bowel wall thickening. 3. Mild prominence of the biliary tree. This is likely related to previous cholecystectomy however c ould be correlated with liver function tests. ACT 112: Negative or not required by law. Electronically signed by: Сергей Daniels M.D. 12/21/2019 9:07 PM
--- NOTE | 2019-12-21 21:09 | XRay Report ---
XR chest 1V portable CLINICAL HISTORY: epigastric pain COMPARISON STUDY: Chest radiograph January 14, 2007. FINDINGS: Lung volumes are normal. Lungs are clear. There is no pneumothorax or pleural effusion. Car diac size is normal. Mediastinal contours are normal. There is no evidence for pulmonary edema. IMPRESSION: No acute cardiopulmonary findings. ACT 112: Negative or not required by law. Electronically signed by: Сергей Daniels M.D. 12/21/2019 9:08 PM
[2019-12-21 21:20] LABS: Appearance Urine Clear (Clear); Bilirubin Urine Negative (Negative); Blood Urine 1+ (Negative); Color Urine Yellow; Glucose Urine UA Negative (Negative); Ketones Urine Negative (Negative); Leukocyte Esterase Urine Negative (Negative); Nitrite Urine Negative (Negative); Protein Urine Negative (Negative); Specific Gravity Urine <= 1.005 (1.000-1.030); Urobilinogen Urine Positive (Negative)
[2019-12-21 21:26] LABS: Epithelial Cell Urine >30 /lpf (0-5); WBC Urine 0-5 /hpf (0-5)
[2019-12-21 21:27] LABS: Bacteria Urine Negative (Negative)
[2019-12-21] MEDS ORDERED: POTASSIUM CHLORIDE 10 MEQ TABCR PO STA (22:02)
[2019-12-21] MEDS: POTASSIUM CHLORIDE / WTR 10 MEQ/100 ML PLCT IV SCH ×2 (22:37→23:41)
--- NOTE | 2019-12-21 22:56 | History & Physical Report ---
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 She is hemodynamically stable. 1. Nausea, vomiting, and diarrhea x 4 days -Clinically, this status-post cholecystectomy patient reports about 4 days of nausea, vomiting, and diarrhea that has not shown any improvement with new, mild diffuse itching throughout today. The exact etiology of these issues remains unclear. While they certainly could represent a viral or bacterial gastroenteritis (e.g., 2/2 food poisoning), the overall picture is complicated by transaminitis and an otherwise normal white count/afebrile state, further denying any constitutional symptoms over this timeframe. As such, there is question as to whether or not the nausea, vomiting, and diarrhea are related to one process, or represent two separate processes. -Lipase WNL -Currently controlled status post Zofran in the ED -EKG performed to the ED were not concerning for any acute ischemia. Troponins were WNL. -Stool cultures ordered -Zofran 4mg IV PRN for nausea / vomiting -- hold home Zofran -Hold home diphenoxylateatropine 2. Transaminitis (in the setting of nausea, vomiting, and diarrhea x 4 days) -Arrival laboratories were significant for transaminitis of AST 273 and ALT 397, alk phos 138, direct bilirubin of 0.4, and albumin slightly reduced to 3.3 --these laboratory values are not suggestive of a biliary obstructive process, but more likely, an intrahepatic process / reaction. She denies recent alcohol use or drug use. Does report restarting her atorvastatin 40mg about a month ago (that she was previously on for a number of years, but ran out during the pandemic), but otherwise, no new medications (low suspicion for DILI). -CT of the abdomen and pelvis did show mild prominence of the biliary tree, thought to be either related to structural changes from past cholecystectomy versus a new/current issue. While she does report very mild diffuse itching, her laboratories are not suggestive of an overt biliary obstruction like choledocholithiasis. She is not jaundiced. -GI consult placed in setting of transaminitis with nausea/vomiting/diarrhea x 4 days. -LFTs + PT/PTT ordered for tomorrow morning for further evaluation of synthetic function -If LFTs continue to demonstrate elevation tomorrow, can consider MRCP for further visualization of both the liver and biliary tree. -Hepatitis panel ordered -NPO in setting of vomiting 3. Hypokalemia -Admission K found to be 2.8 upon arrival in the ED --given that she reports significant vomiting and diarrhea over the last 4 days, was hypokalemia is likely secondary to GI losses. -s/p KCl 50mEq IV in the ED -Replete with KCl IV PRN -BMP tomorrow morning, recheck K Chronic Medical Problems Anxiety: Continue citalopram 20mg PO daily HLD: Continue atorvastatin 40mg PO daily HTN: Continue lisinopril-HCTZ 20-25mg PO daily -- BPs stable since arrival Seasonal allergies: Continue fexofenadine 180mg PO PRN Dispo: Med/surg PPX: SCDs F/E/N: NPO, hypokalemia as above Code: Full code (2) GABE (generalized anxiety disorder): (3) HTN, goal below 140/90: (4) Hyperlipidemia: History of Present Illness Primary Care Provider: Kelly Tian MD Anahy Gonzalez is a very pleasant 54-year-old female with a notable past medical history including 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 , Jose J, is at the bedside. Per the patient, she was in her normal health until Wednesday when she woke up with significant diarrhea and puking. On Wednesday, she reports that the diarrhea and vomiting were consistent and unresolving. They actually went on all day, and caused her to wake up in the middle of the night on Wednesday. Throughout this time she reports that she was unable to keep almost any foods or drinks down. She reports sleeping pretty much all throughout Wednesday, and because she continued to feel bad with her symptoms, she decided to make a virtual call with her primary care physician. At the time there was strong suspicion that her symptoms represent a viral gastroenteritis, but was reported to go to the ED on if her symptoms did not resolve. Her symptoms continued at the same intensity up until today, although she reports feeling fine since being in the emergency room without vomiting or diarrhea (did receive Zofran). Of note, today she did begin feeling diffusely itchy today, with no new rashes. Throughout this timeframe, she reports that her stool has had a mustardy yellow- green appearance. When asked if she could attribute her symptoms to anything in specific, the only thing that she could think of is that on Wednesday, she did have a hot sausage sandwich that is not necessarily typical for her. Did think that this may have represented food poisoning. There is no one else around her that had the same food, and no one else that has similar symptoms since. Denies any family history of liver disease, rheumatologic diseases, or GI conditions. No history of IV drug use. No recent alcohol use (only 3 glasses of wine a year). Sexually monogamous with , no concerns from her for STIs. On review of systems with her, she did note that she has an indigestion-like chest pain that has continued intermittently this week; she does note, however, that this is been present for a long time. She has no personal history of cardiac disease. She denies any fevers, chills, night sweats, upper or lower respiratory symptoms, palpitations, or shortness of breath. No hematochezia or melena. No urinary symptoms. She denies any changes in vision, balance problems, changes in hearing, numbness or tingling anywhere, or motor weakness. Allergies Allergy/AdvReac Type Severity Reaction Status Date / Time Penicillins Allergy Intermediate RASH FROM Verified 12/19/19 16:33 HEAD TO TOE. Home Medications Home Medications Medication Instructions Recorded Confirmed Type multivitamin 1 tab PO 2XWK 02/15/18 12/21/19 History citalopram 20 mg tablet 20 mg PO DAILY #30 tab 11/24/19 12/21/19 Rx fexofenadine 180 mg tablet 180 mg PO DAILY #30 tab 11/24/19 12/21/19 Rx lisinopril 20 1 tab PO DAILY #30 tab 11/24/19 12/21/19 Rx mg-hydrochlorothiazide 25 mg tablet lorazepam 0.5 mg tablet 0.5 mg PO TID PRN #30 tab 11/24/19 12/21/19 Rx diphenoxylate-atropine 2.5 1 tab PO QID PRN #30 tab MDD 8 12/19/19 12/21/19 Rx mg-0.025 mg tablet TABS/24H ondansetron 4 mg disintegrating 4 mg PO Q6H PRN #10 tab 12/19/19 12/21/19 Rx tablet Past Med/Surg History Medical History (Updated 12/23/19 @ 00:02 by Branden Do) Acne Acute hypokalemia Borderline diabetes Diverticulosis GABE (generalized anxiety disorder) HTN, goal below 140/90 Hyperlipidemia Insomnia Internal hemorrhoids Malignant neoplasm of vagina (11/15/12) "Palpable left groin mass Status post excision of lymph node confirming metastatic squamous cell carcinoma high-grade Finding of distal vaginal lesion T2 N1M0 stage III Status post combined radiation and chemotherapy radiation completed 03/01/2013 received 5600 cGy with pelvic IMRT followed by 3 high-dose treatments of 500 cGy each, total radiation dose 7100 cGy" No pertinent family history Seasonal allergies Surgical History H/O: hysterectomy S/P laparoscopic cholecystectomy Social History Smoking Status: Current every day smoker Cigarettes Per Day: 20; Tobacco Cessation Education Requested by Patient: No Hx Alcohol Use: No Preferred Language: Indonesian Communication Ability: Effective Tissue Technician Required: No Beliefs That Will Affect Care: None Current Living Situation: Spouse Feels Safe at Home: Yes Review of Systems Review of Systems: As per HPI Physical Exam Constitutional: WD/WN, vitals as above Well-appearing 54-year-old female who is sitting relaxed in bed, conversing in full sentences, and does not appear to be in any apparent distress. She does not look sickly. Alert and oriented. Eyes: PERRL, conjunctivae normal, anicteric sclerae No scleral icterus. ENMT: external ear and nose normal, oropharynx normal Neck: trachea midline, no thyromegaly Respiratory: Good respiratory effort with no use of accessory muscles. Lungs are clear to auscultation bilaterally without any crackles or wheezes. Cardiovascular: Normal rate and regular rhythm. S1 and S2 present without any murmurs rubs or gallops. Gastrointestinal (Abdomen): Normoactive bowel sounds. On visual examination, the abdomen does not appear distended. There is notable palpation in the right lower and left lower quadrants, as well as in the area immediately below the umbilicus. There is no involuntary guarding or rebound tenderness. No appreciable hepatosplenomegaly. No CVA tenderness. Skin: no rashes, warm and dry Psychiatric: A+Ox3, euthymic affect Results & Data Results & Data ([facility]) Vital Signs (Past 12 Hours) Vital Signs Temp Pulse Resp BP Pulse Ox 12/21/19 21:13 57 L 19 97 12/21/19 21:11 58 L 16 148/80 H 97 12/21/19 20:30 59 L 25 H 146/80 H 96 12/21/19 20:21 58 L 22 132/74 95 12/21/19 19:44 36.6 C 66 18 148/85 H 97 Supervising Physician Co-Signing Physician Notes Attending addendum: I have physically seen this patient, have supervised the medical residents activities, and agree with the H&P unless as otherwise noted. Assessment and Plan: Intractable nausea, vomiting and diarrhea x4 days- Admit to medical floor. Follow stool cultures, blood cultures and urine cultures. IV fluids. Initially begin n.p.o., and gradually progressed through clears to full liquids and then to regular diet as tolerated. Zofran 4 mg IV every 6 hours as needed DC home Lomotil Abnormal LFTs/primarily transaminitis- AST 273, ALT 397, alk phos [address] abdomen pelvis identifies a status post cholecystectomy, with no other abnormal findings. Add acute hepatitis panel. If all labs otherwise normal, consider MRCP. Hypokalemia- Potassium 2.8 upon admission. Likely secondary to GI losses Replace with IV supplementation. Repeat labs in the a.m. Remaining orders and notations as noted
[2019-12-22] MEDS ORDERED: ALUMINUM/MAGNESIUM SUSP 30 ML UDC PO PRN (00:47)
[2019-12-22] MEDS ORDERED: ONDANSETRON INJ 2 MG/ML 2 ML VIAL IV PRN (00:47)
[2019-12-22] MEDS ORDERED: MULTIVITAMIN TAB PO SCH (00:47)
[2019-12-22] MEDS ORDERED: ACETAMINOPHEN 325 MG TAB PO PRN (00:47)
[2019-12-22] MEDS ORDERED: POLYETHYLENE (MIRALAX) 17 GM PACK PO PRN (00:47)
[2019-12-22 07:06] LABS: Prothrombin Time 10.4 Seconds (9.0-12.0)
[2019-12-22 07:43] VITALS: TEMP 98.1
[2019-12-22 07:52] LABS: Albumin Level 2.9 gm/dl (3.4-5.0); BUN Creatinine Ratio 9.7 (10-20); Bilirubin Direct 0.3 mg/dl (0-0.2); Bilirubin,Total 0.6 mg/dl (0.2-1); Calcium 8.6 mg/dl (8.5-10.1); Creatinine Clr Calc Pharmacy 104.3 ml/min; Est GFR (African American) 116.6; Est GFR (Non-African American) 100.6; Potassium 3.5 mmol/L (3.5-5.1); Total Protein 6.1 gm/dl (6.4-8.2)
[2019-12-22] MEDS ORDERED: Nursing to Pharmacy Communication SCH (08:15)
[2019-12-22 08:17] LABS: Hepatitis B Surface Antigen Neg (Neg)
--- NOTE | 2019-12-22 08:33 | Electrocardiogram Report ---
Test Reason : Blood Pressure : / mmHG Vent. Rate : 062 BPM Atrial Rate : 062 BPM P-R Int : 152 ms QRS Dur : 086 ms QT Int : 420 ms P-R-T Axes : 054 -04 019 degrees QTc Int : 426 ms Normal sinus rhythm Minimal voltage criteria for LVH, may be normal variant Borderline ECG When compared with ECG of 03-JAN-2009 12:53, No significant change was found Confirmed by Darío Hernandez ([id number]) on 12/22/2019 8:33:28 AM Referred By: REFERRED SELF Confirmed By:Darío Hernandez
[2019-12-22 08:45] LABS: Hepatitis C IgG 13Yrs+Old_Rflx Neg (Neg)
--- NOTE | 2019-12-22 08:58 | Gastrointestinal Consultation ---
Date of Consultation December 22, 2019 Assessment & Plan (1) Transaminitis: Obtain MRCP, stool studies, hepatitis panel as ordered. Continue NPO and IVF. Please refer to supervising physician addendum for further recommendations. History of Present Illness Attending Physician: Kleber Devine DO History of Present Illness The patient is a pleasant 54 year old female with PMH of acne, diverticulosis, GABE (generalized anxiety disorder), HTN, hyperlipidemia, insomnia, internal hemorrhoids, malignant neoplasm of vagina (11/15/12 - s/p hysterectomy, radiation and chemotherapy), seasonal allergies, s/p laparoscopic cholecystectomy who presented to the ED with 4 day history of nausea, vomiting, and diarrhea. CT A/P with contrast was obtained that demonstrated mild prominence of the biliary tree. Vital signs stable. Labs show leukopenia of 3.44. Potassium 2.8. Patient's bilirubin level direct is elevated 0.4. AST and ALT are elevated 273 and 397 respectively. Alkaline phosphatase elevated at 138. Patient subsequently admitted for further management. Patient states she contacted PCP due to nausea, vomiting, diarrhea and was prescribed nausea medication and advised to have clear liquids. She presented to ED for evaluation after 4 days of symptoms and feeling increasingly weak. States she has had some mild right mid to lower abdominal discomfort. Reports an 8 pound weight loss, GERD. Denies fever, chills, dysuria, hematemesis, hematochezia, melena, hematuria, headache, neck pain, back pain, weakness and breathing difficulty. The patient is . Has a total of 5 children. Patient is a current smoker. Reports she has been smoking for the last 20 years. Reports she has been smoking about 1 ppd for the last 8 months. Denies recreational drug use including marijuana. 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 Allergies Allergy/AdvReac Type Severity Reaction Status Date / Time Penicillins Allergy Intermediate RASH FROM Verified 12/19/19 16:33 HEAD TO TOE. Home Medications Home Medications Medication Instructions Recorded Confirmed Type multivitamin 1 tab PO 2XWK 02/15/18 12/21/19 History citalopram 20 mg tablet 20 mg PO DAILY #30 tab 11/24/19 12/21/19 Rx fexofenadine 180 mg tablet 180 mg PO DAILY #30 tab 11/24/19 12/21/19 Rx lisinopril 20 1 tab PO DAILY #30 tab 11/24/19 12/21/19 Rx mg-hydrochlorothiazide 25 mg tablet lorazepam 0.5 mg tablet 0.5 mg PO TID PRN #30 tab 11/24/19 12/21/19 Rx atorvastatin 40 mg tablet 40 mg PO DAILY #30 tab 11/30/19 12/21/19 Rx diphenoxylate-atropine 2.5 1 tab PO QID PRN #30 tab MDD 8 12/19/19 12/21/19 Rx mg-0.025 mg tablet TABS/24H ondansetron 4 mg disintegrating 4 mg PO Q6H PRN #10 tab 12/19/19 12/21/19 Rx tablet Patient History Medical History (Updated 12/22/19 @ 01:40 by Mansoor Cid) Acne Borderline diabetes Diverticulosis GABE (generalized anxiety disorder) HTN, goal below 140/90 Hyperlipidemia Insomnia Internal hemorrhoids Malignant neoplasm of vagina (11/15/12) "Palpable left groin mass Status post excision of lymph node confirming metastatic squamous cell carcinoma high-grade Finding of distal vaginal lesion T2 N1M0 stage III Status post combined radiation and chemotherapy radiation completed 03/01/2013 received 5600 cGy with pelvic IMRT followed by 3 high-dose treatments of 500 cGy each, total radiation dose 7100 cGy" No pertinent family history Seasonal allergies Surgical History H/O: hysterectomy S/P laparoscopic cholecystectomy Social History Smoking Status: Current every day smoker Cigarettes Per Day: 20; Tobacco Cessation Education Requested by Patient: No Hx Alcohol Use: No Preferred Language: Kinyarwanda Communication Ability: Effective Manager Contract Required: No Beliefs That Will Affect Care: None Current Living Situation: Spouse Feels Safe at Home: Yes Review of Systems Review of Systems: All systems reviewed & are unremarkable except as noted in Subjective Physical Exam Constitutional: WD/WN, vitals as above Eyes: wears corrective lenses ENMT: Ears: no external ear abnormality Neck: normal visual inspection Respiratory: normal respiratory effort, lungs clear to auscultation Cardiovascular: RRR, no murmur, no edema Gastrointestinal (Abdomen): Inspection/Auscultation: abdomen normal to inspection and normal bowel sounds; abdomen not distended Percussion/Palpation: + abdomen tender (RLQ mild with palpation) and abdomen soft; no guarding and abdomen not rigid Musculoskeletal: Extremities: extremities normal to inspection Skin: no rashes, warm and dry Psychiatric: A+Ox3, euthymic affect Results & Data ([facility]) Vital Signs (Past 12 Hours) Vital Signs Temp Pulse Pulse Pulse Resp BP BP 12/22/19 07:42 36.7 C 54 L 18 126/71 12/22/19 00:52 37.6 C H 58 L 16 144/92 H 12/22/19 00:10 52 L 18 126/79 12/21/19 22:56 58 L 18 127/71 12/21/19 22:30 57 L 15 136/84 12/21/19 22:01 55 L 17 128/72 12/21/19 21:30 58 L 27 H 139/78 12/21/19 21:13 57 L 19 12/21/19 21:11 58 L 16 148/80 H Pulse Ox 12/22/19 07:42 95 12/22/19 00:52 98 12/22/19 00:10 97 12/21/19 22:56 98 12/21/19 22:30 97 12/21/19 22:01 96 12/21/19 21:30 96 12/21/19 21:13 97 12/21/19 21:11 97 Laboratory Results - last 24 hr 12/21/19 12/21/19 12/21/19 20:11 20:11 20:11 WBC 3.44 L RBC 4.50 Hgb 14.3 Hct 40.2 MCV 89.3 MCH 31.8 MCHC 35.6 RDW Std Deviation 42.1 RDW Coeff of Kendra 12.9 Plt Count 137 MPV 10.0 Immature Gran % (Auto) 0.0 Neut % (Auto) 39.8 Lymph % (Auto) 41.3 Foard % (Auto) 15.4 Eos % (Auto) 3.2 Baso % (Auto) 0.3 Neut # (Auto) 1.37 L Lymph # (Auto) 1.42 Foard # (Auto) 0.53 Eos # (Auto) 0.11 Baso # (Auto) 0.01 Immature Gran # (Auto) 0.00 PT INR Sodium 139 Potassium 2.8 L Chloride 107 Carbon Dioxide 27 Anion Gap 5.0 BUN 9 Creatinine 0.80 Est Cr Clr Drug Dosing Not Reportable Est GFR ( Amer) 98.2 Est GFR (Non-Af Amer) 84.8 BUN/Creatinine Ratio 10.9 Glucose 101 H Calcium 9.2 Magnesium 2.1 Total Bilirubin 0.9 Direct Bilirubin 0.4 H AST 273 H ALT 397 H Alkaline Phosphatase 138 H Troponin I < 0.015 Total Protein 6.7 Albumin 3.3 L Lipase 287 Urine Color Urine Appearance Urine pH Ur Specific [place] Urine Protein Urine Glucose (UA) Urine Ketones Urine Blood Urine Nitrite Urine Bilirubin Urine Urobilinogen Ur Leukocyte Esterase Urine RBC Urine WBC Ur Epithelial Cells Urine Bacteria Hepatitis A IgM Ab Hep Bs Antigen Hep B Core IgM Ab Hepatitis C Antibody 12/21/19 12/22/19 12/22/19 21:10 06:30 06:30 WBC RBC Hgb Hct MCV MCH MCHC RDW Std Deviation RDW Coeff of Kendra Plt Count MPV Immature Gran % (Auto) Neut % (Auto) Lymph % (Auto) Foard % (Auto) Eos % (Auto) Baso % (Auto) Neut # (Auto) Lymph # (Auto) Foard # (Auto) Eos # (Auto) Baso # (Auto) Immature Gran # (Auto) PT INR Sodium Potassium Chloride Carbon Dioxide Anion Gap BUN Creatinine Est Cr Clr Drug Dosing Est GFR ( Amer) Est GFR (Non-Af Amer) BUN/Creatinine Ratio Glucose Calcium Magnesium Total Bilirubin Direct Bilirubin AST ALT Alkaline Phosphatase Troponin I Total Protein Albumin Lipase Urine Color Yellow Urine Appearance Clear Urine pH 6.0 Ur Specific [place] <= 1.005 Urine Protein Negative Urine Glucose (UA) Negative Urine Ketones Negative Urine Blood 1+ H Urine Nitrite Negative Urine Bilirubin Negative Urine Urobilinogen Positive H Ur Leukocyte Esterase Negative Urine RBC 5-10 H Urine WBC 0-5 Ur Epithelial Cells >30 H Urine Bacteria Negative Hepatitis A IgM Ab Pending Hep Bs Antigen Neg Hep B Core IgM Ab Pending Hepatitis C Antibody Neg 12/22/19 12/22/19 06:30 06:30 WBC RBC Hgb Hct MCV MCH MCHC RDW Std Deviation RDW Coeff of Kendra Plt Count MPV Immature Gran % (Auto) Neut % (Auto) Lymph % (Auto) Foard % (Auto) Eos % (Auto) Baso % (Auto) Neut # (Auto) Lymph # (Auto) Foard # (Auto) Eos # (Auto) Baso # (Auto) Immature Gran # (Auto) PT 10.4 INR 1.0 Sodium 141 Potassium 3.5 D Chloride 110 H Carbon Dioxide 29 Anion Gap 2.0 L BUN 7 Creatinine 0.68 Est Cr Clr Drug Dosing 104.3 Est GFR ( Amer) 116.6 Est GFR (Non-Af Amer) 100.6 BUN/Creatinine Ratio 9.7 L Glucose 92 Calcium 8.6 Magnesium Total Bilirubin 0.6 Direct Bilirubin 0.3 H AST 204 H ALT 348 H Alkaline Phosphatase 124 H Troponin I Total Protein 6.1 L Albumin 2.9 L Lipase Urine Color Urine Appearance Urine pH Ur Specific [place] Urine Protein Urine Glucose (UA) Urine Ketones Urine Blood Urine Nitrite Urine Bilirubin Urine Urobilinogen Ur Leukocyte Esterase Urine RBC Urine WBC Ur Epithelial Cells Urine Bacteria Hepatitis A IgM Ab Hep Bs Antigen Hep B Core IgM Ab Hepatitis C Antibody 12/21/2019: CT A/P with contrast demonstrated 1. No acute process within the abdomen or pelvis. 2. Normal appendix. No bowel obstruction. No bowel wall thickening. 3. Mild prominence of the biliary tree. This is likely related to previous cholecystectomy however could be correlated with liver function tests.
[2019-12-22] MEDS ORDERED: CITALOPRAM 20 MG TAB PO SCH ×2 (09:00→21:00)
[2019-12-22] MEDS ORDERED: FEXOFENADINE HCL 180 MG TAB PO SCH (09:00)
[2019-12-22] MEDS ORDERED: ATORVASTATIN 40 MG TAB PO SCH ×2 (09:00→21:00)
[2019-12-22] MEDS ORDERED: LISINOPRIL/HCTZ 20/25MG 1 TAB PO SCH (09:00)
--- NOTE | 2019-12-22 12:08 | Magnetic Resonance Report ---
MR MRCP HISTORY: 54 years-old Female elevated LFTs, r/o choledocholithiasis, do this am elevated LFTs with n ausea and vomiting COMPARISON: CT abdomen and pelvis 12/21/2019 TECHNIQUE: MRCP without the use of IV contrast was obtained according to institutional protocol. 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 Mildly motion degraded exam. Note is made of a posterior disc osteophyte complex with mild central canal stenosis at L1-L2. Probab le scarring versus atelectasis of the posterior basal segment right lower lobe. Imaged cardiac chambe rs are unremarkable. Probable cyst of the superior pole right kidney, 1.2 cm. Kidneys are otherwise u nremarkable. Aorta and IVC are within normal limits. No adenopathy. The spleen, pancreas and adrenal glands are unremarkable. There is a 6 mm T2 hyperintense lesion of the subserosal inferior right hepa tic lobe, likely benign. Cholecystectomy. Mild intrahepatic and extrahepatic biliary ductal prominence with the common bile du ct measuring up to 6 mm. No pancreatic ductal dilation or pancreatic divisum. No filling defects with in the common bile duct to suggest choledocholithiasis. No biliary stricture or mass identified. IMPRESSION: Cholecystectomy with mild intrahepatic and extrahepatic biliary ductal prominence. No obstructing luis iary stone or lesion identified. ACT 112: Negative or not required by law. The above report was generated using voice recognition software. It may contain grammatical, syntax o r spelling errors. Electronically signed by: Kumar Bowers M.D. 12/22/2019 12:06 PM
[2019-12-22] MEDS ORDERED: LORazepam 0.5 MG TAB PO STA (13:00)
--- NOTE | 2019-12-22 14:48 | Discharge Summary ---
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 , Jose J, is at the bedside. Per the patient, she was in her normal health until Wednesday when she woke up with significant diarrhea and puking. On Wednesday, she reports that the diarrhea and vomiting were consistent and unresolving. They actually went on all day, and caused her to wake up in the middle of the night on Wednesday. Throughout this time she reports that she was unable to keep almost any foods or drinks down. She reports sleeping pretty much all throughout Wednesday, and because she continued to feel bad with her symptoms, she decided to make a virtual call with her primary care physician. At the time there was strong suspicion that her symptoms represent a viral gastroenteritis, but was reported to go to the ED on if her symptoms did not resolve. Her symptoms continued at the same intensity up until today, although she reports feeling fine since being in the emergency room without vomiting or diarrhea (did receive Zofran). Of note, today she did begin feeling diffusely itchy today, with no new rashes. Throughout this timeframe, she reports that her stool has had a mustardy yellow- green appearance. When asked if she could attribute her symptoms to anything in specific, the only thing that she could think of is that on Wednesday, she did have a hot sausage sandwich that is not necessarily typical for her. Did think that this may have represented food poisoning. There is no one else around her that had the same food, and no one else that has similar symptoms since. Denies any family history of liver disease, rheumatologic diseases, or GI conditions. No history of IV drug use. No recent alcohol use (only 3 glasses of wine a year). Sexually monogamous with , no concerns from her for STIs. On review of systems with her, she did note that she has an indigestion-like chest pain that has continued intermittently this week; she does note, however, that this is been present for a long time. She has no personal history of cardiac disease. She denies any fevers, chills, night sweats, upper or lower respiratory symptoms, palpitations, or shortness of breath. No hematochezia or melena. No urinary symptoms. She denies any changes in vision, balance problems, changes in hearing, numbness or tingling anywhere, or motor weakness. Principal Diagnosis Transaminitis Discharge Exam Constitutional WD/WN, vitals as above Eyes PERRL, conjunctivae normal, anicteric sclerae ENMT external ear and nose normal, oropharynx normal Neck trachea midline, no thyromegaly Respiratory normal respiratory effort, lungs clear to auscultation Cardiovascular RRR, no murmur, no edema Gastrointestinal (Abdomen) normal bowel sounds, soft, nontender, no hepatosplenomegaly Musculoskeletal no cyanosis or clubbing, extremities motor strength 5/5 Skin no rashes, warm and dry Neurologic patellar DTR's 2+ bilat, sensation intact and PERRL, EOMI, accommodation nl, no face palsy, no dysarthria Psychiatric A+Ox3, euthymic affect Lymphatic no cervical or axillary lymphadenopathy Discharge Data Allergies Allergy/AdvReac Type Severity Reaction Status Date / Time Penicillins Allergy Intermediate RASH FROM Verified 12/28/19 07:20 HEAD TO TOE. Consultations 12/21/19 21:14 ED Decision to Admit Stat 12/22/19 00:47 Consult Gastroenterology Routine Ordered Studies 12/21/19 20:01 CT abd pelvis IV con only Stat 12/22/19 06:47 MR MRCP Urgent Hospital Course (1) Transaminitis: AST and ALT minimally elevated, trending down imaging, specifically MRCP, shows no stone, no signs of obstruction patient admits to taking a supplement intended to boost metabolism also, she started taking statin medication again within the past few weeks discussed with Dr. Bernstein, no further work up inpatient patient is eating well, no nausea/vomiting at all, no abdominal pain will discharge to home, hold supplement and statin, check LFT in a week, follow up with Dr. Bernstein (2) GABE (generalized anxiety disorder): mood stable, continue Celexa (3) HTN, goal below 140/90: BP stable (4) Hyperlipidemia: hold statin due to elevated LFT Total Time Total Time Spent Total Time Spent (In Minutes): 25 minutes Total Time Includes: Examination of the Patient, Discharge Planning, Medication Reconciliation and Communication With Other Providers (Dr. Bernstein) Discharge Plan Discharge Items Patient Disposition: Home - Self-Care Reason For Visit: N/V/D, TRANSAMINITIS Discharge Diagnosis: Transaminitis possible drug induced elevation in liver enzymes Condition on Discharge: Good Activity: Resume your previous activity Non-emergency contact: Primary Care Provider and Group Program Manager Call non-emergency contact if: you have any medication questions Follow-up/Referrals: Kelly Tian MD [Primary Care Provider] - 12/28/19 7:40 am () Edgard Bernstein [Physician] - (2 weeks please call and schedule follow in Dr Estrada office ) Diet: Regular Addtl Attending Provider Instructions: Medications: STOP the atorvastatin and the metabolism supplement from [employer] Transaminitis: could be either medication induced OR acute viral illness GI recommends holding the above medications follow up with Dr. Tian next week and have her repeat your liver enzymes follow up with Dr. Bernstein, GI, in two weeks hepatitis C and B negative MRI of the liver shows no stones, no obstruction advance diet as tolerated, stay well hydrated Pending Studies at Discharge: No Stand-Alone Forms: [employer], Smoking Cessation Medications and DC Order Prescriptions: Continued multivitamin tablet 1 tab PO 2XWK RF: 0 citalopram [Celexa] 20 mg tablet 20 mg PO DAILY Qty: 30 RF: 2 lisinopril-hydrochlorothiazide 20-25 mg tablet 1 tab PO DAILY Qty: 30 RF: 2 lorazepam 0.5 mg tablet 0.5 mg PO TID PRN (Reason: anxiety) Qty: 30 RF: 0 fexofenadine [Jeanine Allergy] 180 mg tablet 180 mg PO DAILY Qty: 30 RF: 0 ondansetron 4 mg tablet,disintegrating 4 mg PO Q6H PRN (Reason: nausea and vomiting) Qty: 10 RF: 0 diphenoxylate-atropine [Lomotil] 2.5-0.025 mg tablet 1 tab PO QID MDD 8 TABS/24H PRN (Reason: diarrhea) Qty: 30 RF: 0 Discontinued atorvastatin 40 mg tablet 40 mg PO DAILY Qty: 30 RF: 2 Discharge Orders: Discharge Order (Routine); Ordered 12/22/19 Ordered By: Kleber Devine Admission Data Admit Date/Time: 12/21/19 23:47 Attending Provider: Kleber Devine Admit Provider: George Garcia Primary Care Provider: Kelly Tian Other Providers: Wyatt Monroy ; Edgard Bernstein Other Interventions: Discharge Summary Assessment (RN) Last Done: 12/22/19 15:06 Coding Level of Care Code D/C Day Management <30 mins Diagnoses Transaminitis R74.0 GABE (generalized anxiety disorder) F41.1 HTN, goal below 140/90 I10 Hyperlipidemia E78.5
[2019-12-22 15:19] VITALS: BP 131/80; PULSE 60; O2SAT 98
[2019-12-23 13:42] LABS: Hepatitis A Antibody IgM NON-REACTIVE (NON-REACTIVE); Hepatitis B Core Antibody IgM NON-REACTIVE (NON-REACTIVE)
--- NOTE | 2019-12-23 17:24 | Billing Data ---
Date of Service December 23, 2019 Coding Level of Care Code 03480 OBS Care - Level 3
== END 2019-12-22 15:55 | disposition home or self-care (01) ==
LOC: ED 19:42 → SUATTDRO 23:47 → 2N 23:47 → INTOOBSV 23:47 → 2N 12-22 00:15